=== PATIENT | female | born 1960 | race Caucasian/White ===

== ENCOUNTER 2023-03-19 11:09 | Emergency (ER) | payer OTHER, SELFPAY ==
--- NOTE | ~2023-03-19 | XR_ITS ---
Right Hand Technique: PA, oblique, and lateral views were obtained. Clinical History: Trauma Findings: No acute fracture or dislocation is seen. Osseous alignment is anatomic. Joint spaces are p reserved. Soft tissues are unremarkable. Impression: Unremarkable right hand. Reviewed, dictated and finalized at location M. [facility] [employer] Impression: Unremarkable right hand.
[2023-03-19 11:28] VITALS: BP 134/78; PULSE 75; RESP 18; TEMP 36.2; O2SAT 100
--- NOTE | 2023-03-19 11:28 | ED.UPPEXIN ---
HPI - Extremity Injury (Upper) General Chief Complaint: Extremity Injury, Upper Stated Complaint: WC Right hand middle finger thinks its cracked Time Seen by Provider: 03/19/23 11:28 Source: patient Mode of arrival: ambulatory Limitations: no limitations History of Present Illness HPI narrative: 63-year-old female presents with complaint of pain and swelling to right middle finger for 10 days. States 10 days ago she slammed her right hand in steel door. States that her hand was holding onto a door frame while flipping switch to tried on light and room with her left hand and door closed onto right hand. States she had pain to right index middle and ring finger but now only having pain and swelling to right middle finger. There is a scab from her abrasion to proximal phalanx of middle finger without any redness or warmth. Range of motion intact. All systems reviewed and negative except as noted above. Related Data Home Medications Medication Instructions Recorded Confirmed Singulair 03/19/23 cholecalciferol (vitamin D3) 50 50 mcg PO DAILY 03/19/23 03/19/23 mcg (2,000 unit) tablet duloxetine 30 mg capsule,delayed 30 mg PO DAILY 03/19/23 03/19/23 release fexofenadine 180 mg tablet 180 mg PO DAILY 03/19/23 03/19/23 fluticasone propionate 50 intranasal 03/19/23 mcg/actuation nasal spray,suspension gabapentin 300 mg capsule mg 03/19/23 polyethylene glycol 3350 17 g 03/19/23 gram/dose oral powder Allergies Allergy/AdvReac Type Severity Reaction Status Date / Time prochlorperazine Allergy Muscle Pain Verified 03/19/23 11:33 Sulfa (Sulfonamide Allergy Hives Verified 03/19/23 11:33 Antibiotics) tramadol Allergy Hives Verified 03/19/23 11:33 Review of Systems Review of Systems: CONSTITUTIONAL: Denies fever, chills, or sweats. EYES: Denies visual changes, redness, or discharge. ENT: Denies rhinorrhea, congestion, sore throat, or otalgia. CARDIOVASCULAR: Denies chest pain, palpitations, or edema. RESPIRATORY: Denies cough or dyspnea. GASTROINTESTINAL: Denies abdominal pain, nausea, vomiting, or diarrhea. GENITOURINARY: Denies dysuria or hematuria. SKIN: Denies rash or itching. MUSCULOSKELETAL: Reports pain and swelling to right middle finger. NEUROLOGIC: Denies headache, numbness, or weakness. PSYCHIATRIC: Denies anxiety or depression. All other systems reviewed are negative, except as documented in HPI. PMFSH Comments At time of signature, agree with nursing past medical, surgical, social and family history. There is no relevant family history pertinent to the presenting complaint. Exam Narrative: GENERAL: This is a well-nourished, well-developed patient, in no apparent distress. HEAD: normocephalic, atraumatic. EYES: PERRL. Sclera clear/white. Vision is grossly intact. EARS: External ears normal NOSE: External nose normal NECK: Neck supple, non-tender without lymphadenopathy, masses or thyromegaly. CARDIOVASCULAR: Regular rate and rhythm without murmurs, gallops, or rubs. RESPIRATORY: Clear to auscultation. Breath sounds equal bilaterally. No wheezes, rales, or rhonchi. SKIN: warm, Dry, intact with no suspicious lesions or rash, good texture and turgor. NEURO: awake, alert, and oriented to person, place and time. There were no obvious focal neurologic abnormalities. EXTREMITIES: No joint tenderness, effusion. There is mild swelling to right middle finger With normal range of motion. There is a scab to right middle finger at the proximal flu next. No signs of infection such as redness, warmth. Distal neurovascularly intact. Course Course Level of Care: Express Care Visit Vital Signs Vital signs: Reviewed MDM - Extremity Injury (Upper) MDM Narrative Medical decision making narrative: discussed x-ray results with patient. Negative for fracture. Recommend ibuprofen, Tylenol, elevation as needed for pain. Follow-up with primary care physician if not improvin
[2023-03-19 11:35] VITALS: BP 134/78; PULSE 75; RESP 18; TEMP 36.2; O2SAT 100
== END 2023-03-19 12:48 | disposition home or self-care (01) ==
PROVIDERS: Emergency Provider Nurse Practitioner Family; PCP Hospitalist
DX: S60.031A Contusion of right middle finger without damage to nail, initial encounter (principal); Z79.899 Other long term (current) drug therapy; W20.8XXA Other cause of strike by thrown, projected or falling object, initial encounter
CPT/HCPCS: 73130; 99203; G0463